=== PATIENT | male | born 1960 | race Caucasian/White ===

== ENCOUNTER 2016-10-06 20:45 | Emergency (ER) | payer SELFPAY ==
[2016-10-06 20:46] VITALS: BP 144/72; PULSE 59; RESP 16; TEMP 98.7; O2SAT 96
== END 2016-10-06 21:34 | disposition left against medical advice (07) ==
LOC: NED 20:45
DX: R07.9 Chest pain, unspecified (principal); Z53.21 Procedure and treatment not carried out due to patient leaving prior to being seen by health care provider
CPT/HCPCS: 99281